=== PATIENT | male | born 1975 | race Caucasian/White ===

== ENCOUNTER 2016-12-16 04:28 | Emergency (ER) | payer OTHER ==
[~2016-12-16] VITALS: Ht 182.9 cm; Wt 102.5 kg
[2016-12-16 04:36] VITALS: Ht 182.9 cm; Wt 102.5 kg
== END 2016-12-16 06:16 | disposition left against medical advice (07) ==
LOC: FTE 04:28 → E/R 06:16
DX: Z53.21 Procedure and treatment not carried out due to patient leaving prior to being seen by health care provider (principal)
CPT/HCPCS: 82962

== ENCOUNTER 2016-12-23 03:44 | Emergency (ER) | payer OTHER ==
[~2016-12-23] VITALS: Ht 182.9 cm; Wt 102.0 kg
[2016-12-23 03:59] VITALS: Ht 182.9 cm; Wt 102.0 kg
[2016-12-23] MEDS ORDERED: GUAI120S26 PO (04:20)
[2016-12-23] MEDS ORDERED: CETI10CA PO (04:20)
[2016-12-23] MEDS ORDERED: CYCL-319 PO (04:20)
[2016-12-23] MEDS ORDERED: IBUP-1542 PO (04:20)
--- NOTE | 2016-12-23 05:18 | ERD ---
ER Documentation Chief Complaint Date/Time DATE: 12/23/16 TIME: 05:00 Chief Complaint headache, accu vheck in triage-94 HPI 41 yo male presents here in the [facility] for complaitns of headache, cough, runny nose, or throat for 2 days. Patient has been having dry cough, does not cough up any phlegm or blood. Patient does not have any shortness breath or wheezing. Patient has been having runny nose, nasal congestion clear nasal discharge. Patient does not have any sick contacts. Patient is also complain of left lower back pain, patient fell backwards through days ago, described the pain as sharp pain, 6/10 scale, accompanied with muscle spasms. Patient denies any incontinence. Patient denies any difficulty walking. Patient denies any numbness or tingling. Patient denies any deformity. Patient denies any other joint pains. Patient did not take any medication stop it symptoms. ROS All systems reviewed and are negative except as per history of present illness. Medications Home Meds Active Scripts Cyclobenzaprine Hcl* (Cyclobenzaprine Hcl*) 10 Mg Tablet, 10 MG PO TID, #20 TAB Prov:ADITYA DEVLIN NP 12/23/16 Ibuprofen* (Motrin*) 600 Mg Tab, 600 MG PO Q6H Y for PAIN AND OR ELEVATED TEMP, #30 TAB Prov:ADITYA DEVLIN NP 12/23/16 Cetirizine Hcl* (Zyrtec*) 10 Mg Capsule, 10 MG PO DAILY, #30 TAB.CHEW Prov:ADITYA DEVLIN NP 12/23/16 Kgzvkmerill-F-Dtnsgceorq Hb* (Guaifenesin* DM Syrup) 120 Ml Syrup, 10 ML PO Q4H Y for COUGH, #120 ML Prov:ADITYA DEVLIN NP 12/23/16 Allergies Allergies: Coded Allergies: latex (Verified Allergy, Unknown, 12/16/16) PMhx/Soc Hx Neurological Disorder: Yes (seizures) Hx Cardiac Disorders: Yes (HTN) Hx Psychiatric Problems: Yes (paranoia, deppression) Hx Miscellaneous Medical Probl: Yes (DM, impotence, insomnia) Hx Alcohol Use: No Hx Substance Use: Yes (medical marijuana) Hx Tobacco Use: No Smoking Status: Former smoker FmHx Family History: No coronary disease, No diabetes, No other Physical Exam Vitals Vital Signs Date Time Temp Pulse Resp B/P Pulse Ox O2 Delivery O2 Flow Rate FiO2 12/23/16 03:59 98.3 88 20 142/80 98 Physical Exam GENERAL: The patient is well developed and appropriate for usual state of health, in no apparent distress. HEENT: Atraumatic. Ears: Normal tympanic membrane, no erythema or bulging. No ear canal swelling. No ear discharge. Nose: Erythematous nasal turbinates with clear nasal discharge. Throat: oropharynx erythematous with postnasal drip. No tonsillar swelling or tonsillar exudates. No lymphadenopathy. CHEST: Clear to auscultation bilaterally. There are no rales, wheezes or rhonchi. HEART: Regular rate and rhythm. No murmurs, clicks, rubs or gallops. No S3 or S4. ABDOMEN: Soft, nontender and nondistended. Good bowel sounds. No rebound or guarding. No gross peritonitis. No gross organomegaly or masses. No Doshi sign or McBurney point tenderness. BACK: Muscle spasms noted in the left paraspinal aspect of the lumbar spine, able to do full range of motion without any restriction. No midline or flank tenderness. EXTREMITIES: Equal pulses bilaterally. There is no peripheral clubbing, cyanosis or edema. No focal swelling or erythema. Full range of motion. Grossly neurovascularly intact. NEURO: Alert and oriented. Cranial nerves 2-12 intact. Motor strength in all 4 extremities with 5/5 strength. Sensation grossly intact. Normal speech and gait. SKIN: There is no apparent rash or petechia. The skin is warm and dry. HEMATOLOGIC AND LYMPHATIC: There is no evidence of excessive bruising or lymphedema. No gross cervical, axillary, or inguinal lymphadenopathy. Results 24 hrs Laboratory Tests Test 12/23/16 03:58 Bedside Glucose 94mg/dL [facility] Medical Decision Making: Patient symptoms are most likely consistent with upper respiratory tract infection, which viral in origin. There is low suspicion for Pneumonia at this time since patients lungs sounds are clear, patient O2 saturation is normal and patient doesnt show any respiratory distress. Radiology exam is not indicated at this time. There is low suspicion for other cardiopulmonary emergencies at this time such as CHF, Pulmonary Embolism, Pneumothorax, or any other cardiopulmonary emergencies at this time. There is low suspicion for sepsis. Patient appears well and is hemodynamically stable. Fever is controlled with medicines. Patient's pain is most likely consistent with a back muscle strain and back contusion. There is no suspicion for neurovascular compromise. Patient has intact sensation and circulation of the affected extremity. There is low suspicion for septic arthritis. Patient does not have any fever. Radiology exams of the affected area not indicated at this time. Able to do full range of motion of the wrist without any restriction. No suspicion for cauda equina syndrome, epidural hematoma, epidural abscess. Home. Condition: Stable Prescriptions: Guaifenesin DM Zyrtec ibuprofen Flexeril Instructions: Patient is advised to take medications as prescribed. Patient is advised to rest. Patient advised to increase fluid intake, do humidifier at home and if possible, do salt water gargles avoid heavy lifting, apply warm compresses on affected areas. Patient is advised that if symptoms are worse, shortness of breath, uncontrolled fever, stridor, vomiting, worst signs and symptoms to return to emergency department immediately. Otherwise, patient is advised to follow up with primary doctor in 5-7 days. Departure Diagnosis: Primary Impression: URI (upper respiratory infection) URI type: unspecified viral URI Qualified Code: J06.9 - Viral upper respiratory tract infection Additional Impression: Back pain Back pain location: low back pain Chronicity: acute Back pain laterality: left Sciatica presence: without sciatica Qualified Code: M54.5 - Acute left- sided low back pain without sciatica Condition: Stable Patient Instructions: Back Pain (Acute Or Chronic), Uri, Viral, No Abx (Adult) Referrals: [facility] YOU HAVE RECEIVED A MEDICAL SCREENING EXAM AND THE RESULTS INDICATE THAT YOU DO NOT HAVE A CONDITION THAT REQUIRES URGENT TREATMENT IN THE EMERGENCY DEPARTMENT. FURTHER EVALUATION AND TREATMENT OF YOUR CONDITION CAN WAIT UNTIL YOU ARE SEEN IN YOUR DOCTORS OFFICE WITHIN THE NEXT 1-2 DAYS. IT IS YOUR RESPONSIBILITY TO MAKE AN APPOINTMENT FOR [facility]. IF YOU HAVE A PRIMARY DOCTOR --you should call your primary doctor and schedule an appointment IF YOU DO NOT HAVE A PRIMARY DOCTOR YOU CAN CALL OUR PHYSICIAN REFERRAL HOTLINE AT IF YOU CAN NOT AFFORD TO SEE A PHYSICIAN YOU CAN CHOSE FROM THE FOLLOWING [facility] [address] [facility]. [facility] [address] [facility] [address] [facility] [address] [facility] [address] [facility]. [facility]. [address] [facility]. [facility] YOU HAVE RECEIVED A MEDICAL SCREENING EXAM AND THE RESULTS INDICATE THAT YOU DO NOT HAVE A CONDITION THAT REQUIRES URGENT TREATMENT IN THE EMERGENCY DEPARTMENT. FURTHER EVALUATION AND TREATMENT OF YOUR CONDITION CAN WAIT UNTIL YOU ARE SEEN IN YOUR DOCTORS OFFICE WITHIN THE NEXT 1-2 DAYS. IT IS YOUR RESPONSIBILITY TO MAKE AN APPOINTMENT FOR FOLOW-UP CARE. IF YOU HAVE A PRIMARY DOCTOR --you should call your primary doctor and schedule and appointment IF YOU DO NOT HAVE A PRIMARY DOCTOR YOU CAN CALL OUR PHYSICIAN REFERRAL HOTLINE AT . IF YOU CAN NOT AFFORD TO SEE A PHYSICIAN YOU CAN CHOSE FROM THE FOLLOWING [facility] INSTITUTIONS: [facility] [address] [place] [address] [facility] [address] [place] [address] [facility] [address] [place] [address] ADITYA DEVLIN NP Dec 23, 2016 05:18
== END 2016-12-23 04:34 | disposition home or self-care (01) ==
LOC: FTE 03:44
DX: J06.9 Acute upper respiratory infection, unspecified (principal); M54.5 Low back pain; I10 Essential (primary) hypertension; E11.9 Type 2 diabetes mellitus without complications; Z87.891 Personal history of nicotine dependence; Z91.040 Latex allergy status
CPT/HCPCS: 82962; Z7502; 99283

== ENCOUNTER 2017-01-28 01:32 | Emergency (ER) | payer OTHER ==
[~2017-01-28] VITALS: Ht 193 cm; Wt 100.0 kg
[~2017-01-28 01:32] MED LIST: CETI10CA PO; CYCL-319 PO; GUAI120S26 PO; IBUP-1542 PO
[2017-01-28 01:45] VITALS: Ht 193 cm; Wt 100.0 kg
--- NOTE | 2017-01-28 05:17 | ERD ---
ER Documentation Chief Complaint Date/Time DATE: 01/28/17 TIME: 05:12 Chief Complaint Pt states, "I don't feel good." Reports he has not checked BS since 12/23 HPI Patient is a 41-year-old male with a past medical history of hypertension, DM type II, paranoia, depression, who presents the emergency department for concerns of "I do not feel good". Patient states that 4 days ago his prescription medications for his diabetes were changed. Patient states he was started on metformin. Patient is here in concerns of whether he should change his diet today. Patient states "should I eat less" or "should I only eat salad. " Patient does report checking his blood sugars at home. He states his blood sugar at 8 PM today was 102. Patient denies any dizziness, nausea, vomiting, abdominal pain, fever, chills, chest pain, shortness of breath or loss of consciousness. ROS All systems reviewed and are negative except as per history of present illness. Medications Home Meds Active Scripts Cyclobenzaprine Hcl* (Cyclobenzaprine Hcl*) 10 Mg Tablet, 10 MG PO TID, #20 TAB Prov:ADITYA DEVLIN NP 12/23/16 Ibuprofen* (Motrin*) 600 Mg Tab, 600 MG PO Q6H Y for PAIN AND OR ELEVATED TEMP, #30 TAB Prov:ADITYA DEVLIN NP 12/23/16 Cetirizine Hcl* (Zyrtec*) 10 Mg Capsule, 10 MG PO DAILY, #30 TAB.CHEW Prov:ADITYA DEVLIN NP 12/23/16 Zzgjqpzortm-H-Jybziythec Hb* (Guaifenesin* DM Syrup) 120 Ml Syrup, 10 ML PO Q4H Y for COUGH, #120 ML Prov:DAITYA DEVLIN NP 12/23/16 Allergies Allergies: Coded Allergies: latex (Verified Allergy, Unknown, 12/16/16) PMhx/Soc Medical and Surgical Hx: pt denies Medical Hx, pt denies Surgical Hx Hx Neurological Disorder: Yes (seizures) Hx Cardiac Disorders: Yes (HTN) Hx Psychiatric Problems: Yes (paranoia, deppression) Hx Miscellaneous Medical Probl: Yes (DM, impotence, insomnia; CHRONIC BACK PAIN ) Hx Alcohol Use: No Hx Substance Use: Yes (medical marijuana) Hx Tobacco Use: No Smoking Status: Never smoker FmHx Family History: diabetes Physical Exam Vitals Vital Signs Date Time Temp Pulse Resp B/P Pulse Ox O2 Delivery O2 Flow Rate FiO2 01/28/17 01:45 98.8 70 18 158/92 98 Physical Exam GENERAL: Well-developed, well-nourished male. Appears in no acute distress. Speaking in full sentences HEAD: Normocephalic, atraumatic. EYES: Pupils are equally reactive bilaterally. EOMs grossly intact. No conjunctival erythema. ENT: Moist mucous membranes. No uvula deviation. No kissing tonsils. NECK: Supple. No meningismus. Normal range of motion of the neck. LUNG: Clear to auscultation bilaterally. No rhonchi, wheezing, rales or coarse breath sounds. HEART: Regular rate and rhythm. No murmurs, rubs or gallops. ABDOMEN: Soft, nontender, and nondistended. Positive bowel sounds in all four quadrants. No rebound tenderness, no guarding. (-) McBurney's point tenderness. No CVA tenderness. BACK: No midline tenderness. EXTREMITIES: Equal pulses bilaterally. No peripheral clubbing, cyanosis or edema. No unilateral leg swelling. NEUROLOGIC: Alert and oriented. Moving all four extremities without any difficulty. Normal speech. Steady gait. SKIN: Normal color. Warm and dry. Results 24 hrs Laboratory Tests Test 01/28/17 01:54 01/28/17 04:12 Bedside Glucose 102mg/dL 137mg/dL [facility] MEDICAL DECISION MAKING: Patient is a 41-year-old male past medical history of diabetes who presents for "I do not feel good". Upon speaking with the patient, he was unsure if he should change his appetite due to recently being started on metformin. Vital signs were reviewed. Patient is afebrile. Patient was not hypoxic. Patient's Accu-Chek blood sugar level was noted to be 137. This time, patient' s presentation is most consistent with diabetes. Low suspicion for hypoglycemia , DKA, HONK. I explained to the patient that he should continue to eat normal healthy meals as he was advised by his primary care physician. Hemoglobin A1C advised on an outpatient basis. PRESCRIPTION: none Patient advised to continue all medications as prescribed by primary care physician. DISCHARGE: At this time, patient is stable for discharge and outpatient management. I have instructed the patient to follow-up with his/her primary care physician in 1-2 days. I have discussed with the patient the possibility of needing to see a specialist for further workup and imaging studies if symptoms persist. I have instructed the patient to promptly return to the ER for any new or worsening symptoms including increased pain, fever, nausea, vomiting, weakness or LOC. The patient and/or family expressed understanding of and agreement with this plan. All questions were answered. Home care instructions were provided. Patient's blood pressure was elevated (>120/80) but appears stable without evidence of hypertensive emergency, hypertensive urgency or end-organ failure. I had discussion with the patient about the risks of hypertension. I have advised the patient to follow up with his/her primary care physician for outpatient monitoring and treatment for hypertension in 2-3 days. I have instructed the patient to return to the ER for any new or worsening symptoms including chest pain, shortness of breath, headache, blurred vision, confusion, nausea, vomiting or LOC. Departure Diagnosis: Primary Impression: Diabetes Diabetes mellitus type: other specified (including SANDRA) Diabetes mellitus complication status: with unspecified complications Diabetes mellitus chemist intern insulin use: unspecified alf insulin use status Qualified Code: E13.8 - Diabetes mellitus of other type with complication, unspecified chemist intern insulin use status Condition: Stable Patient Instructions: Diabetes: Caring for Your Body Referrals: [facility] YOU HAVE RECEIVED A MEDICAL SCREENING EXAM AND THE RESULTS INDICATE THAT YOU DO NOT HAVE A CONDITION THAT REQUIRES URGENT TREATMENT IN THE EMERGENCY DEPARTMENT. FURTHER EVALUATION AND TREATMENT OF YOUR CONDITION CAN WAIT UNTIL YOU ARE SEEN IN YOUR DOCTORS OFFICE WITHIN THE NEXT 1-2 DAYS. IT IS YOUR RESPONSIBILITY TO MAKE AN APPOINTMENT FOR FOL- CARE. IF YOU HAVE A PRIMARY DOCTOR --you should call your primary doctor and schedule an appointment IF YOU DO NOT HAVE A PRIMARY DOCTOR YOU CAN CALL OUR PHYSICIAN REFERRAL HOTLINE AT IF YOU CAN NOT AFFORD TO SEE A PHYSICIAN YOU CAN CHOSE FROM THE FOLLOWING [facility] [address] [facility] [address] [facility]. [facility] [address] [facility] [address] [facility] [address] [facility]. [facility] [address] [facility]. [facility] YOU HAVE RECEIVED A MEDICAL SCREENING EXAM AND THE RESULTS INDICATE THAT YOU DO NOT HAVE A CONDITION THAT REQUIRES URGENT TREATMENT IN THE EMERGENCY DEPARTMENT. FURTHER EVALUATION AND TREATMENT OF YOUR CONDITION CAN WAIT UNTIL YOU ARE SEEN IN YOUR DOCTORS OFFICE WITHIN THE NEXT 1-2 DAYS. IT IS YOUR RESPONSIBILITY TO MAKE AN APPOINTMENT FOR FOLOW-UP CARE. IF YOU HAVE A PRIMARY DOCTOR --you should call your primary doctor and schedule and appointment IF YOU DO NOT HAVE A PRIMARY DOCTOR YOU CAN CALL OUR PHYSICIAN REFERRAL HOTLINE AT . IF YOU CAN NOT AFFORD TO SEE A PHYSICIAN YOU CAN CHOSE FROM THE FOLLOWING [facility] INSTITUTIONS: [facility] [address] [place] [address] [facility] [address] [place] [address] [facility] + [facility] [address] [place] [address] Additional Instructions: Call your primary care doctor TOMORROW for an appointment during the next 1-2 days.See the doctor sooner or return here if your condition worsens before your appointment time. Follow-up with your primary care physician as scheduled. Recommend hemoglobin A1C at time. DONIS MAXWELL PA-C Jan 28, 2017 05:17
== END 2017-01-28 04:31 | disposition home or self-care (01) ==
LOC: FTE 01:32
DX: E13.8 Other specified diabetes mellitus with unspecified complications (principal); I10 Essential (primary) hypertension
CPT/HCPCS: 82962; Z7502; 99282

== ENCOUNTER 2017-02-22 13:24 | Emergency (ER) | payer OTHER ==
[~2017-02-22] VITALS: Wt 98.5 kg
--- NOTE | 2017-02-22 15:44 | ERD ---
ER Documentation Chief Complaint Date/Time DATE: 02/22/17 TIME: 15:41 Chief Complaint PT HERE FOR MED CLEARANCE PRIOR TO DONATING PLASMA HPI This a 41-year-old male who presents the emergency department today for medical clearance in order to be able to donate plasma. Denies any complaints at this time. ROS All systems reviewed and are negative except as per history of present illness. Medications Home Meds Active Scripts Cyclobenzaprine Hcl* (Cyclobenzaprine Hcl*) 10 Mg Tablet, 10 MG PO TID, #20 TAB Prov:ADITYA DEVLIN INTERLOCKER MAINTAINER 12/23/16 Ibuprofen* (Motrin*) 600 Mg Tab, 600 MG PO Q6H Y for PAIN AND OR ELEVATED TEMP, #30 TAB Prov:ADITYA DEVLIN INTERLOCKER MAINTAINER 12/23/16 Cetirizine Hcl* (Zyrtec*) 10 Mg Capsule, 10 MG PO DAILY, #30 TAB.CHEW Prov:ADITYA DEVLIN NP 12/23/16 Zjjhcygsrib-G-Qxnrgdzctg Hb* (Guaifenesin* DM Syrup) 120 Ml Syrup, 10 ML PO Q4H Y for COUGH, #120 ML Prov:ADITYA DEVLIN NP 12/23/16 Allergies Allergies: Coded Allergies: latex (Verified Allergy, Unknown, 12/16/16) PMhx/Soc Hx Neurological Disorder: Yes (seizures) Hx Cardiac Disorders: Yes (HTN) Hx Psychiatric Problems: Yes (paranoia, deppression) Hx Miscellaneous Medical Probl: Yes (DM, impotence, insomnia; CHRONIC BACK PAIN ) Hx Alcohol Use: No Hx Substance Use: Yes (medical marijuana) Hx Tobacco Use: No Smoking Status: Never smoker Physical Exam Vitals Vital Signs Date Time Temp Pulse Resp B/P Pulse Ox O2 Delivery O2 Flow Rate FiO2 02/22/17 13:26 97.7 74 18 138/60 99 Physical Exam Const: No acute distress Head: Atraumatic Eyes: Normal Conjunctiva ENT: Normal External Ears, Nose and Mouth. Neck: Full range of motion..~ No meningismus. Resp: Clear to auscultation bilaterally Cardio: Regular rate and rhythm, no murmurs Abd: Soft, non tender, non distended. Normal bowel sounds Skin: No petechiae or rashes Back: No midline or flank tenderness Ext: No cyanosis, or edema Neur: Awake and alert Psych: Normal Mood and Affect Procedures/MDM This is a 41-year-old male who presents to the emergency department today for medical clearance prior to donating plasma. Upon further questioning as to why patient was donating plasma his response was "to make extra money". I have explained to the patient that this clearance is something that he will need to be getting this from his primary care physician. Patient was unsure who his primary care doctor was and I gave him a list of resources. Patient has no complaints at this time. He is afebrile and otherwise well-appearing. At this time the patient is stable for discharge and outpatient management. Patient should follow up with their PCP in the next 1-2 days. They may return to the emergency department sooner for any persistent or worsening of symptoms. Patient understood and agreed with the plan. Discussed the patient with Dr. Sandhu and he is in agreement with the plan. Departure Diagnosis: Primary Impression: Encounter for laboratory test Condition: Fair Referrals: [facility] YOU HAVE RECEIVED A MEDICAL SCREENING EXAM AND THE RESULTS INDICATE THAT YOU DO NOT HAVE A CONDITION THAT REQUIRES URGENT TREATMENT IN THE EMERGENCY DEPARTMENT. FURTHER EVALUATION AND TREATMENT OF YOUR CONDITION CAN WAIT UNTIL YOU ARE SEEN IN YOUR DOCTORS OFFICE WITHIN THE NEXT 1-2 DAYS. IT IS YOUR RESPONSIBILITY TO MAKE AN APPOINTMENT FOR FOLOW-UP CARE. IF YOU HAVE A PRIMARY DOCTOR --you should call your primary doctor and schedule an appointment IF YOU DO NOT HAVE A PRIMARY DOCTOR YOU CAN CALL OUR PHYSICIAN REFERRAL HOTLINE AT IF YOU CAN NOT AFFORD TO SEE A PHYSICIAN YOU CAN CHOSE FROM THE FOLLOWING [facility] [address] [facility] [address] [address] [address] [facility] [address] [facility] [address] [facility] [address] [facility] [address] [facility]. [employer] [facility]. [address] Additional Instructions: Call your primary care doctor TOMORROW for an appointment during the next 1-2 days.See the doctor sooner or return here if your condition worsens before your appointment time. Make an appoint with your primary care doctor to obtain the necessary testing that you need down to donate plasma. This is an outpatient procedure RIKA SWAN PA-C Feb 22, 2017 15:44
== END 2017-02-22 14:27 | disposition home or self-care (01) ==
LOC: FTE 13:24
DX: Z00.00 Encounter for general adult medical examination without abnormal findings (principal); I10 Essential (primary) hypertension; E11.9 Type 2 diabetes mellitus without complications
CPT/HCPCS: 99282

== ENCOUNTER 2017-04-19 00:57 | Emergency (ER) | payer MEDICAID, OTHER ==
[~2017-04-19] VITALS: Ht 190.5 cm; Wt 89.0 kg
[2017-04-19 01:05] VITALS: Ht 190.5 cm; Wt 89.0 kg
[2017-04-19] MEDS ORDERED: CLIN-73 PO (01:51)
[2017-04-19] MEDS ORDERED: IBUP-1542 PO (01:51)
[2017-04-19 02:05] VITALS: BP 127/79; PULSE 81; RESP 18; TEMP 97
--- NOTE | 2017-04-19 02:07 | ERD ---
ER Documentation Chief Complaint Date/Time DATE: 04/19/17 TIME: 02:04 Chief Complaint BIB SELF, CC: LEFT FOOT WOUND / PAIN HX OF DIABETES HPI 41-year-old male presents in emergency department for a left foot ulcer that he has had for years, patient states that he was wearing his shoes and was walking a lot, formed a blister, nitrites open. Patient denies any redness or swelling. Patient complains of some pain sharp pain 4/10 scale, is worse upon touching the area. Patient is diabetic, takes medications for it. Patient denies any numbness or tingling. Patient denies any fever or chills. ROS All systems reviewed and are negative except as per history of present illness. Medications Home Meds Active Scripts Clindamycin Hcl* (Clindamycin Hcl*) 300 Mg Capsule, 300 MG PO TID for 10 Days, CAP Prov:ADITYA DEVLIN NP 04/19/17 Ibuprofen* (Motrin*) 600 Mg Tab, 600 MG PO Q6H Y for PAIN AND OR ELEVATED TEMP, #30 TAB Prov:ADITYA DEVLIN NP 04/19/17 Cyclobenzaprine Hcl* (Cyclobenzaprine Hcl*) 10 Mg Tablet, 10 MG PO TID, #20 TAB Prov:ADITYA DEVLIN NP 12/23/16 Ibuprofen* (Motrin*) 600 Mg Tab, 600 MG PO Q6H Y for PAIN AND OR ELEVATED TEMP, #30 TAB Prov:ADITYA DEVLIN NP 12/23/16 Cetirizine Hcl* (Zyrtec*) 10 Mg Capsule, 10 MG PO DAILY, #30 TAB.CHEW Prov:ADITYA DEVLIN NP 12/23/16 Emxlhuhiopv-V-Zvfnuhgpmg Hb* (Guaifenesin* DM Syrup) 120 Ml Syrup, 10 ML PO Q4H Y for COUGH, #120 ML Prov:ADITYA DEVLIN NP 12/23/16 Allergies Allergies: Coded Allergies: latex (Verified Allergy, Unknown, 12/16/16) PMhx/Soc History of Surgery: No Anesthesia Reaction: No Hx Neurological Disorder: Yes (Seizures) Hx Respiratory Disorders: No Hx Cardiac Disorders: Yes (HTN) Hx Psychiatric Problems: Yes (Paranoia,Depression) Hx Miscellaneous Medical Probl: Yes (DM,Impotence,Insomnia,Chronic Back Pains) Hx Alcohol Use: No Hx Substance Use: Yes (Medical Marijuana) Hx Tobacco Use: Yes (1 pack/day) Smoking Status: Current every day smoker FmHx Family History: No coronary disease, No diabetes, No other Physical Exam Vitals Vital Signs Date Time Temp Pulse Resp B/P Pulse Ox O2 Delivery O2 Flow Rate FiO2 04/19/17 01:05 97.0 75 18 126/81 99 Physical Exam GENERAL: The patient is well developed and appropriate for usual state of health, in no apparent distress. CHEST: Clear to auscultation bilaterally. There are no rales, wheezes or rhonchi. HEART: Regular rate and rhythm. No murmurs, clicks, rubs or gallops. No S3 or S4. ABDOMEN: Soft, nontender and nondistended. Good bowel sounds. No rebound or guarding. No gross peritonitis. No gross organomegaly or masses. No Doshi sign or McBurney point tenderness. BACK: No midline or flank tenderness. EXTREMITIES: Equal pulses bilaterally. There is no peripheral clubbing, cyanosis or edema. No focal swelling or erythema. Full range of motion. Grossly neurovascularly intact. NEURO: Alert and oriented. Cranial nerves 2-12 intact. Motor strength in all 4 extremities with 5/5 strength. Sensation grossly intact. Normal speech and gait. SKIN: 3 cm diameter ulcer in the lateral aspect of the left foot, no erythema, no induration, no purulent discharge. There is no apparent rash or petechia. The skin is warm and dry. HEMATOLOGIC AND LYMPHATIC: There is no evidence of excessive bruising or lymphedema. No gross cervical, axillary, or inguinal lymphadenopathy. Procedures/MDM Medical decision making: Patient symptoms like it consistent with a blister from the chronic foot ulcer. At this time, no symptoms of any infection. Patient has history of diabetes and will be treated with clindamycin to prevent infection of affected area, patient is a high risk patient. At this time, no symptoms of any sepsis, low suspicion osteomyelitis. No abscess noted. Strict return to ER precautions for any worsening symptoms, high fever, redness or swelling. Follow with primary care doctor in 2 days for wound check. Patient was advised to return to emergency department for worsening symptoms. Disposition: Home. Stable. Departure Diagnosis: Primary Impression: Chronic foot ulcer Laterality: left Non-pressure ulcer stage: unspecified non-pressure ulcer stage Qualified Code: L97.529 - Chronic foot ulcer, left, with unspecified severity Condition: Stable Patient Instructions: Diabetic Foot Ulcers ADITYA DEVLIN NP Apr 19, 2017 02:07
== END 2017-04-19 02:05 | disposition home or self-care (01) ==
LOC: FTE 00:57
DX: L97.529 Non-pressure chronic ulcer of other part of left foot with unspecified severity (principal); I10 Essential (primary) hypertension; E11.9 Type 2 diabetes mellitus without complications; F17.210 Nicotine dependence, cigarettes, uncomplicated
CPT/HCPCS: 99283

== ENCOUNTER 2017-04-28 03:27 | Emergency (ER) | payer MEDICAID ==
[~2017-04-28] VITALS: Ht 193 cm; Wt 89.0 kg
[~2017-04-28 03:27] MED LIST changes: +CLIN-73 PO
[2017-04-28 03:41] VITALS: Ht 193 cm; Wt 89.0 kg
[2017-04-28 04:42] VITALS: BP 118/81; PULSE 77; RESP 18; TEMP 98.3
--- NOTE | 2017-04-28 04:51 | ERD ---
ER Documentation Chief Complaint Date/Time DATE: 04/28/17 TIME: 04:49 Chief Complaint non-healing wound on his L sole HPI 41-year-old male presents here in emergency department for a reevaluation of the left foot ulcer, patient is diabetic, took antibiotics, the ulcer opened one week ago, was given antibiotics, also to come back for reevaluation. Patient is here again for reevaluation. Patient denies any pain. Patient denies any redness or swelling. Patient denies any fever or chills per patient denies any reinjury. ROS All systems reviewed and are negative except as per history of present illness. Medications Home Meds Active Scripts Clindamycin Hcl* (Clindamycin Hcl*) 300 Mg Capsule, 300 MG PO TID for 10 Days, CAP Prov:ADITYA DEVLIN NP 04/19/17 Ibuprofen* (Motrin*) 600 Mg Tab, 600 MG PO Q6H Y for PAIN AND OR ELEVATED TEMP, #30 TAB Prov:ADITYA DEVLIN NP 04/19/17 Cyclobenzaprine Hcl* (Cyclobenzaprine Hcl*) 10 Mg Tablet, 10 MG PO TID, #20 TAB Prov:ADITYA DEVLIN NP 12/23/16 Ibuprofen* (Motrin*) 600 Mg Tab, 600 MG PO Q6H Y for PAIN AND OR ELEVATED TEMP, #30 TAB Prov:ADITYA DEVLIN NP 12/23/16 Cetirizine Hcl* (Zyrtec*) 10 Mg Capsule, 10 MG PO DAILY, #30 TAB.CHEW Prov:ADITYA DEVLIN NP 12/23/16 Wwvpdygtfie-P-Fpkfgnoyqu Hb* (Guaifenesin* DM Syrup) 120 Ml Syrup, 10 ML PO Q4H Y for COUGH, #120 ML Prov:ADITYA DEVLIN NP 12/23/16 Allergies Allergies: Coded Allergies: latex (Verified Allergy, Unknown, 12/16/16) PMhx/Soc History of Surgery: No Anesthesia Reaction: No Hx Neurological Disorder: Yes (Seizures) Hx Respiratory Disorders: No Hx Cardiac Disorders: Yes (HTN) Hx Psychiatric Problems: Yes (Paranoia,Depression) Hx Miscellaneous Medical Probl: Yes (DM,Impotence,Insomnia,Chronic Back Pains) Hx Alcohol Use: No Hx Substance Use: Yes (Medical Marijuana) Hx Tobacco Use: Yes (1 pack/day) Smoking Status: Current every day smoker FmHx Family History: No coronary disease, No diabetes, No other Physical Exam Vitals Vital Signs Date Time Temp Pulse Resp B/P Pulse Ox O2 Delivery O2 Flow Rate FiO2 04/28/17 04:42 98.3 77 18 118/81 100 Room Air 04/28/17 03:41 96.7 73 18 126/70 100 Physical Exam GENERAL: The patient is well developed and appropriate for usual state of health, in no apparent distress. CHEST: Clear to auscultation bilaterally. There are no rales, wheezes or rhonchi. HEART: Regular rate and rhythm. No murmurs, clicks, rubs or gallops. No S3 or S4. ABDOMEN: Soft, nontender and nondistended. Good bowel sounds. No rebound or guarding. No gross peritonitis. No gross organomegaly or masses. No Doshi sign or McBurney point tenderness. BACK: No midline or flank tenderness. EXTREMITIES: Equal pulses bilaterally. There is no peripheral clubbing, cyanosis or edema. No focal swelling or erythema. Full range of motion. Grossly neurovascularly intact. NEURO: Alert and oriented. Cranial nerves 2-12 intact. Motor strength in all 4 extremities with 5/5 strength. Sensation grossly intact. Normal speech and gait. SKIN: noted left foot ulcer to be closed, healing well. There is no apparent rash or petechia. The skin is warm and dry. HEMATOLOGIC AND LYMPHATIC: There is no evidence of excessive bruising or lymphedema. No gross cervical, axillary, or inguinal lymphadenopathy. Procedures/MDM MEdical Decision making: Patient had left foot ulcer, it is healing well, no symptoms of any infection. Patient's currently taking antibiotics was given to him. No symptoms of any neurovascular compromise. No symptoms of sepsis, no symptoms of a myelitis. Patient appears with hemodynamic stable. Patient was advised to continue taking antibiotics until finished, is advised to follow-up with primary care doctor in 2-3 days for reevaluation of symptoms. Sent to emergency department for any worsening symptoms. Disposition: Home. Stable. Departure Diagnosis: Primary Impression: Foot ulcer Laterality: left Non-pressure ulcer stage: unspecified non-pressure ulcer stage Qualified Code: L97.529 - Ulcer of left foot, unspecified ulcer stage Condition: Stable Patient Instructions: Diabetic Foot Ulcers ADITYA DEVLIN NP Apr 28, 2017 04:51
== END 2017-04-28 04:43 | disposition home or self-care (01) ==
LOC: FTE 03:27
DX: E11.621 Type 2 diabetes mellitus with foot ulcer (principal); L97.529 Non-pressure chronic ulcer of other part of left foot with unspecified severity; I10 Essential (primary) hypertension; F17.210 Nicotine dependence, cigarettes, uncomplicated
CPT/HCPCS: 99282

== ENCOUNTER 2017-05-17 02:25 | Emergency (ER) | payer MEDICAID, OTHER ==
[~2017-05-17] VITALS: Ht 175.3 cm; Wt 95.5 kg
[2017-05-17 02:30] VITALS: Ht 175.3 cm; Wt 95.5 kg
[2017-05-17] MEDS ORDERED: IBUP400T22 PO (03:03)
--- NOTE | 2017-05-17 03:22 | ERD ---
ER Documentation Chief Complaint Date/Time DATE: 05/17/17 TIME: 03:10 Chief Complaint wound check left foot HPI 41 year old male presents here wound check, has left foot ulcer, wants that checked, states its healing well, wants it covered and checked. has some pain, throbbing 3/10, didnt take medication for pain. denies fever or chills. ROS All systems reviewed and are negative except as per history of present illness. Medications Home Meds Active Scripts Ibuprofen* (Motrin*) 400 Mg Tab, 400 MG PO Q6H Y for PAIN AND OR ELEVATED TEMP, #30 TAB Prov:ADITYA DEVLIN NP 05/17/17 Clindamycin Hcl* (Clindamycin Hcl*) 300 Mg Capsule, 300 MG PO TID for 10 Days, CAP Prov:ADITYA DEVLIN NP 04/19/17 Ibuprofen* (Motrin*) 600 Mg Tab, 600 MG PO Q6H Y for PAIN AND OR ELEVATED TEMP, #30 TAB Prov:ADITYA DEVLIN NP 04/19/17 Cyclobenzaprine Hcl* (Cyclobenzaprine Hcl*) 10 Mg Tablet, 10 MG PO TID, #20 TAB Prov:ADITYA DEVLIN NP 12/23/16 Ibuprofen* (Motrin*) 600 Mg Tab, 600 MG PO Q6H Y for PAIN AND OR ELEVATED TEMP, #30 TAB Prov:ADITYA DEVLIN NP 12/23/16 Cetirizine Hcl* (Zyrtec*) 10 Mg Capsule, 10 MG PO DAILY, #30 TAB.CHEW Prov:ADITYA DEVLIN NP 12/23/16 Pdjpyyrukfu-T-Onlkazxddt Hb* (Guaifenesin* DM Syrup) 120 Ml Syrup, 10 ML PO Q4H Y for COUGH, #120 ML Prov:ADITYA DEVLIN NP 12/23/16 Allergies Allergies: Coded Allergies: latex (Verified Allergy, Unknown, 12/16/16) PMhx/Soc History of Surgery: No Anesthesia Reaction: No Hx Neurological Disorder: Yes (Seizures) Hx Respiratory Disorders: No Hx Cardiac Disorders: Yes (HTN) Hx Psychiatric Problems: Yes (Paranoia,Depression) Hx Miscellaneous Medical Probl: Yes (DM,Impotence,Insomnia,Chronic Back Pains) Hx Alcohol Use: No Hx Substance Use: Yes (Medical Marijuana) Hx Tobacco Use: Yes (1 pack/day) Smoking Status: Current every day smoker FmHx Family History: No coronary disease, No diabetes, No other Physical Exam Vitals Vital Signs Date Time Temp Pulse Resp B/P Pulse Ox O2 Delivery O2 Flow Rate FiO2 05/17/17 02:30 98.3 90 20 169/93 99 Physical Exam GENERAL: The patient is well developed and appropriate for usual state of health, in no apparent distress. CHEST: Clear to auscultation bilaterally. There are no rales, wheezes or rhonchi. HEART: Regular rate and rhythm. No murmurs, clicks, rubs or gallops. No S3 or S4. ABDOMEN: Soft, nontender and nondistended. Good bowel sounds. No rebound or guarding. No gross peritonitis. No gross organomegaly or masses. No Doshi sign or McBurney point tenderness. BACK: No midline or flank tenderness. EXTREMITIES: Equal pulses bilaterally. There is no peripheral clubbing, cyanosis or edema. No focal swelling or erythema. Full range of motion. Grossly neurovascularly intact. NEURO: Alert and oriented. Cranial nerves 2-12 intact. Motor strength in all 4 extremities with 5/5 strength. Sensation grossly intact. Normal speech and gait. SKIN: noted healing ulcer on the left foot. no erythema. There is no apparent ecchymoses or petechia. The skin is warm and dry. HEMATOLOGIC AND LYMPHATIC: There is no evidence of excessive bruising or lymphedema. No gross cervical, axillary, or inguinal lymphadenopathy. Procedures/MDM Medical decision making: Patient has a healing left foot ulcer, no s/s of infection. symptoms of any neurovascular compromise. No symptoms of sepsis. Prescription was given ibuprofen for pain. Patient appears hemodynamically stable. Rx: Ibuprofen Disposition: Home. Stable. Departure Diagnosis: Primary Impression: Foot ulcer Laterality: left Non-pressure ulcer stage: unspecified non-pressure ulcer stage Qualified Code: L97.529 - Ulcer of left foot, unspecified ulcer stage Additional Impression: Encounter for wound re-check Condition: Stable Patient Instructions: Wound Care ADITYA DEVLIN NP May 17, 2017 03:22
== END 2017-05-17 03:18 | disposition home or self-care (01) ==
LOC: FTE 02:25
DX: L97.529 Non-pressure chronic ulcer of other part of left foot with unspecified severity (principal); I10 Essential (primary) hypertension; E11.9 Type 2 diabetes mellitus without complications; F17.210 Nicotine dependence, cigarettes, uncomplicated
CPT/HCPCS: 99283

== ENCOUNTER 2017-07-15 01:01 | Emergency (ER) | payer OTHER ==
[~2017-07-15] VITALS: Ht 193 cm; Wt 88.0 kg
[~2017-07-15 01:01] MED LIST changes: +IBUP400T22 PO
[2017-07-15 01:03] VITALS: Ht 193 cm; Wt 88.0 kg
[2017-07-15] MEDS ORDERED: IPRATROPIUM (NEB) 0.5 MG/2.5 ML AMP NEB STA (01:41)
[2017-07-15] MEDS ORDERED: ALBUTEROL 0.083% (NEB) 2.5 MG/3 ML AMP NEB STA (01:41)
--- NOTE | 2017-07-15 02:12 | ERD ---
ER Documentation Chief Complaint Chief Complaint c/o cough and fever x 1 day. Can't sleep due to coughing. HPI 42-year-old male presents here to emergency department for complaints of cough shortness breath and wheezing fever that started today. Patient has been having dry cough, does not cough up any phlegm or blood. Patient does not have any fever or chills. Patient does not have any sick contacts. Patient did not take any medications to help with symptoms. ROS All systems reviewed and are negative except as per history of present illness. Medications Home Meds Active Scripts Ibuprofen* (Motrin*) 400 Mg Tab, 400 MG PO Q6H Y for PAIN AND OR ELEVATED TEMP, #30 TAB Prov:ADITYA DEVLIN NP 05/17/17 Clindamycin Hcl* (Clindamycin Hcl*) 300 Mg Capsule, 300 MG PO TID for 10 Days, CAP Prov:ADITYA DEVLIN NP 04/19/17 Ibuprofen* (Motrin*) 600 Mg Tab, 600 MG PO Q6H Y for PAIN AND OR ELEVATED TEMP, #30 TAB Prov:ADITYA DEVLIN NP 04/19/17 Cyclobenzaprine Hcl* (Cyclobenzaprine Hcl*) 10 Mg Tablet, 10 MG PO TID, #20 TAB Prov:ADITYA DEVLIN NP 12/23/16 Ibuprofen* (Motrin*) 600 Mg Tab, 600 MG PO Q6H Y for PAIN AND OR ELEVATED TEMP, #30 TAB Prov:ADITYA DEVLIN NP 12/23/16 Cetirizine Hcl* (Zyrtec*) 10 Mg Capsule, 10 MG PO DAILY, #30 TAB.CHEW Prov:ADITYA DEVLIN NP 12/23/16 Oojsifaqhpp-Q-Qmoudfomrd Hb* (Guaifenesin* DM Syrup) 120 Ml Syrup, 10 ML PO Q4H Y for COUGH, #120 ML Prov:ADITYA DEVLIN NP 12/23/16 Allergies Allergies: Coded Allergies: latex (Verified Allergy, Unknown, 12/16/16) PMhx/Soc History of Surgery: No Anesthesia Reaction: No Hx Neurological Disorder: Yes (Seizures) Hx Respiratory Disorders: No Hx Cardiac Disorders: Yes (HTN) Hx Psychiatric Problems: Yes (Paranoia,Depression) Hx Miscellaneous Medical Probl: Yes (DM,Impotence,Insomnia,Chronic Back Pains) Hx Alcohol Use: No Hx Substance Use: Yes (Medical Marijuana) Hx Tobacco Use: Yes (1 pack/day) Smoking Status: Current every day smoker FmHx Family History: No coronary disease, No diabetes, No other Physical Exam Vitals Vital Signs Date Time Temp Pulse Resp B/P Pulse Ox O2 Delivery O2 Flow Rate FiO2 07/15/17 02:06 76 18 97 21 07/15/17 01:03 96.1 84 20 131/74 96 Physical Exam GENERAL: The patient is well developed and appropriate for usual state of health, in no apparent distress. CHEST: Diffuse wheezing bilaterally. There are no rales, crackles or rhonchi. HEART: Regular rate and rhythm. No murmurs, clicks, rubs or gallops. No S3 or S4. ABDOMEN: Soft, nontender and nondistended. Good bowel sounds. No rebound or guarding. No gross peritonitis. No gross organomegaly or masses. No Doshi sign or McBurney point tenderness. BACK: No midline or flank tenderness. EXTREMITIES: Equal pulses bilaterally. There is no peripheral clubbing, cyanosis or edema. No focal swelling or erythema. Full range of motion. Grossly neurovascularly intact. NEURO: Alert and oriented. Cranial nerves 2-12 intact. Motor strength in all 4 extremities with 5/5 strength. Sensation grossly intact. Normal speech and gait. SKIN: There is no apparent rash or petechia. The skin is warm and dry. HEMATOLOGIC AND LYMPHATIC: There is no evidence of excessive bruising or lymphedema. No gross cervical, axillary, or inguinal lymphadenopathy. Results 24 hrs Current Medications Medications (Trade) Dose Ordered Sig/Paty Route PRN Reason Start Time Stop Time Status Last Admin Dose Admin Albuterol (Proventil 0.083% (Neb)) 5 mg ONCE STAT NEB 07/15/17 01:41 07/15/17 01:42 DC 07/15/17 02:02 Ipratropium [place] (Atrovent 0.02% (Neb)) 0.5 mg ONCE STAT NEB 07/15/17 01:41 07/15/17 01:42 DC 07/15/17 02:03 Breathing treatment of albuterol and Atrovent was given here in emergency department, after treatment, patient's lungs sounds are clear and patient's oxygenation is better. Patient verbalized feeling much better. PROCEDURE: XR Chest. CLINICAL INDICATION: Asthma exacerbation TECHNIQUE: AP Portable chest. COMPARISON: No pertinent prior examinations were submitted for comparison. FINDINGS: The cardiomediastinal silhouette is normal. The lungs are clear. The osseous structures are unremarkable. IMPRESSION: No acute findings. RPTAT: HIKT .Luis A Dean MD, MD Date Time Electronically viewed and signed by .Luis A Dean MD, MD on 07/15/2017 02:20 .T/ CC: ADITYA DEVLIN LOAN TELLER Procedures/MDM Medical Decision Making: Patient symptoms are most likely consistent with acute bronchitis, which viral in origin. There is low suspicion for Pneumonia at this time since patients lungs sounds are clear, patient O2 saturation is normal and patient doesnt show any respiratory distress. Patients chest xray doesnt show infiltrates or any other cardiopulmonary emergencies at this time. There is low suspicion for other cardiopulmonary emergencies at this time such as CHF, Pulmonary Embolism, Pneumothorax, Aortic Aneurysm or any other cardiopulmonary emergencies at this time. There is low suspicion for sepsis. Patient appears well and is hemodynamically stable. Fever is controlled with medicines. Disposition: Home. Condition: Stable Prescriptions: Albuterol, guaifenesin DM Zyrtec ibuprofen. Instructions: Patient is advised to take medications as prescribed. Patient is advised to rest. Patient advised to increase fluid intake, do humidifier at home and if possible, do salt water gargles. Patient is advised that if symptoms are worse, shortness of breath, uncontrolled fever, stridor, vomiting, worst signs and symptoms to return to emergency department immediately. Otherwise, patient is advised to follow up with primary doctor in 5-7 days. Disclaimer: Inadvertent spelling and grammatical errors are likely due to EHR/ dictation software use and do not reflect on the overall quality of patient care. Also, please note that the electronic time recorded on this note does not necessarily reflect the actual time of the patient encounter. Departure Diagnosis: Primary Impression: Acute bronchitis Bronchitis organism: unspecified organism Qualified Code: J20.9 - Acute bronchitis, unspecified organism Condition: Stable Patient Instructions: Bronchitis With Wheezing (Adult) Additional Instructions: Patient is advised to take medications as prescribed. Patient is advised to rest. Patient advised to increase fluid intake, do humidifier at home and if possible, do salt water gargles. Patient is advised that if symptoms are worse, shortness of breath, uncontrolled fever, stridor, vomiting, worst signs and symptoms to return to emergency department immediately. Otherwise, patient is advised to follow up with primary doctor in 5-7 days. ADITYA DEVLIN NP Jul 15, 2017 02:12
--- NOTE | 2017-07-15 02:20 | RADRPT ---
PROCEDURE: XR Chest. CLINICAL INDICATION: Asthma exacerbation TECHNIQUE: AP Portable chest. COMPARISON: No pertinent prior examinations were submitted for comparison. FINDINGS: The cardiomediastinal silhouette is normal. The lungs are clear. The osseous structures are unrema rkable. IMPRESSION: No acute findings. RPTAT: HIKT .Luis A Dean MD, MD Date Time Electronically viewed and signed by .Luis A Dean MD, MD on 07/15/2017 02:20 .T/
[2017-07-15] MEDS ORDERED: ALBU8.5H3 INH (02:55)
[2017-07-15] MEDS ORDERED: CETI10CA PO (02:55)
[2017-07-15] MEDS ORDERED: IBUP-1542 PO (02:55)
[2017-07-15] MEDS ORDERED: GUAI120S26 PO (02:55)
== END 2017-07-15 03:04 | disposition home or self-care (01) ==
LOC: FTE 01:01
DX: J20.9 Acute bronchitis, unspecified (principal); I10 Essential (primary) hypertension; E11.9 Type 2 diabetes mellitus without complications; F17.210 Nicotine dependence, cigarettes, uncomplicated
CPT/HCPCS: 71010; 94664; Z7502; Z7610

== ENCOUNTER 2017-09-13 22:42 | Emergency (ER) | END 2017-09-14 02:21 | disposition left against medical advice (07) ==

== ENCOUNTER 2017-11-11 03:56 | Emergency (ER) | END 2017-11-11 05:05 | disposition home or self-care (01) ==

== ENCOUNTER 2018-01-04 19:49 | Emergency (ER) | END 2018-01-04 21:19 | disposition left against medical advice (07) ==

== ENCOUNTER 2018-01-08 02:29 | Emergency (ER) | END 2018-01-08 03:22 | disposition home or self-care (01) ==

== ENCOUNTER 2018-03-24 19:32 | Emergency (ER) | END 2018-03-25 02:23 | disposition short-term general hospital (02) ==

== ENCOUNTER 2018-04-02 22:47 | Inpatient (IN) | END 2018-04-03 06:25 | disposition left against medical advice (07) | DRG 872 ==

== ENCOUNTER 2018-04-06 05:18 | Emergency (ER) | END 2018-04-06 07:31 | disposition left against medical advice (07) ==

== ENCOUNTER 2018-04-11 11:56 | Emergency (ER) | END 2018-04-11 12:00 | disposition home or self-care (01) ==

== ENCOUNTER 2018-04-15 15:44 | Emergency (ER) | END 2018-04-15 16:54 | disposition home or self-care (01) ==

== ENCOUNTER 2018-04-18 14:48 | Emergency (ER) | END 2018-04-18 15:12 | disposition left against medical advice (07) ==

== ENCOUNTER 2018-04-21 07:34 | Emergency (ER) | END 2018-04-21 08:55 | disposition home or self-care (01) ==

== ENCOUNTER 2018-05-01 23:18 | Emergency (ER) | END 2018-05-02 00:32 | disposition home or self-care (01) ==